=== PATIENT | male | born 1990 | race Two or more races ===

== ENCOUNTER 2019-03-05 03:30 | Emergency (ER) | payer MEDICAID ==
[~2019-03-05] VITALS: Ht 172.7 cm; Wt 72.7 kg
[~2019-03-05 03:30] MED LIST: CELEXA40 MG PO; KLONOPIN0.5 MG PO
[2019-03-05 03:34] VITALS: Ht 172.7 cm; Wt 72.7 kg
[2019-03-05 03:57] LABS: BASOPHILS 0.2 % (0-2); EOSINOPHILS 0.7 % (0-7); HEMATOCRIT 46.7 % (42.0-54.0); HEMOGLOBIN 17.4 g/dL (13.5-17.5); IMMATURE GRANULOCYTES 0.4 % (0-5); LYMPHOCYTES 21.4 % (15-50); MCH 33.2 pg (26.0-34.0); MCHC 37.3 g/dL (31.0-37.0); MCV 89.1 fL (80.0-100.0); MEAN PLATELET VOLUME 10.2 fL (7.4-10.4); MONOCYTES 13.9 % (2-11); NEUTROPHILS 63.4 % (40-80); RBC 5.24 10x6/uL (4.20-6.10); RDW 12.7 % (11.5-14.5); WBC 16.3 10x3/uL (4.8-10.8)
[2019-03-05 03:58] LABS: PLATELET COUNT 365 10x3/uL (130-400)
--- NOTE | 2019-03-05 04:06 | NUR ---
DR CALERO NOTIFIED AND REVIEWED PT's BEHAVIOR AND ASSESSMENT RESULTS. PT IS A LOW RISK PER DR CALERO. DR CALERO STATED TO GIVE RESOURCES TO PT AT TIME OF DISCHARGE. NO FURTHER ORDERS AT THIS TIME. RESOURCES REVIEWED WITH PT AND HE VERBALIZED UNDERSTANDING.
[2019-03-05 04:11] LABS: ALKALINE PHOSPHATASE 103 U/L (46-116); ALT (SGPT) 101 U/L (10-68); CALC OSMOLALITY 267 mosm/kg (275-300); CALCIUM 9.2 mg/dL (8.5-10.1); CARBON DIOXIDE 26.8 mmol/L (21.0-32.0); CHLORIDE - SERUM 95 mmol/L (98-107); CREATININE - SERUM 0.9 mg/dL (0.6-1.3); GLUCOSE 111 mg/dL (74-106); MAGNESIUM - SERUM 2.4 mg/dL (1.8-2.4); PROTEIN - SERUM 9.5 g/dL (6.4-8.2); SODIUM 132 mmol/L (136-145); UREA NITROGEN 18 mg/dL (7-18); VALPROIC ACID (DEPAKOTE) 4.7 ug/mL (50.0-100.0); eGFR NON AFRICAN AMERICAN > 90 mL/min (90-120)
[2019-03-05 04:27] LABS: APPEARANCE CLEAR (CLEAR); BILIRUBIN NEGATIVE (NEGATIVE); COLOR YELLOW (YELLOW); GLUCOSE NEGATIVE (NEGATIVE); KETONE NEGATIVE (NEGATIVE); NITRITE NEGATIVE (NEGATIVE); PROTEIN TRACE mg/dL (NEGATIVE); SPECIFIC GRAVITY 1.015 (1.005-1.020); UROBILINOGEN NORMAL (NORMAL)
[2019-03-05 04:29] LABS: BACTERIA FEW /hpf (NONE SEEN); EPITHELIAL CELLS 0-5 /hpf (0-5); HYALINE CAST 0-5 /lpf (NONE SEEN); RED CELLS - URINE NONE SEEN /hpf (0-5); WHITE CELLS - URINE 0-5 /hpf (0-5)
[2019-03-05 04:35] LABS: UDS - AMPHET NEGATIVE QUAL (NEGATIVE); UDS - BARB NEGATIVE QUAL (NEGATIVE); UDS - BENZO NEGATIVE QUAL (NEGATIVE); UDS - COCAINE NEGATIVE QUAL (NEGATIVE); UDS - OPIATE NEGATIVE QUAL (NEGATIVE); UDS - PCP NEGATIVE QUAL (NEGATIVE); UDS - THC NEGATIVE QUAL (NEGATIVE)
[2019-03-05 19:26] VITALS: BP 119/80
== END 2019-03-05 19:26 ==
LOC: D.ER 03:30
PROVIDERS: Family Medicine
DX: F29 Unspecified psychosis not due to a substance or known physiological condition (principal)

== ENCOUNTER 2019-04-25 18:34 | Emergency (ER) | payer MEDICAID ==
[~2019-04-25] VITALS: Ht 172.7 cm; Wt 70.9 kg
[2019-04-25 18:38] VITALS: Ht 172.7 cm; Wt 70.9 kg
[2019-04-25 19:22] LABS: INR 1.05 (0.85-1.17); PROTIME 13.2 SECONDS (11.6-15.0)
[2019-04-25 19:25] LABS: CALC OSMOLALITY 272 mosm/kg (275-300); CALCIUM 8.7 mg/dL (8.5-10.1); CARBON DIOXIDE 24.1 mmol/L (21.0-32.0); CHLORIDE - SERUM 101 mmol/L (98-107); CREATININE - SERUM 0.8 mg/dL (0.6-1.3); GLUCOSE 96 mg/dL (74-106); POTASSIUM - SERUM 3.6 mmol/L (3.5-5.1); SODIUM 137 mmol/L (136-145); UREA NITROGEN 10 mg/dL (7-18); eGFR NON AFRICAN AMERICAN > 90 mL/min (90-120)
[2019-04-25 19:37] LABS: BASOPHILS 0.2 % (0-2); EOSINOPHILS 1.5 % (0-7); HEMOGLOBIN 14.6 g/dL (13.5-17.5); IMMATURE GRANULOCYTES 0.1 % (0-5); MCH 31.6 pg (26.0-34.0); MCV 93.1 fL (80.0-100.0); MEAN PLATELET VOLUME 9.3 fL (7.4-10.4); MONOCYTES 9.9 % (2-11); NEUTROPHILS 50.3 % (40-80); PLATELET COUNT 340 10x3/uL (130-400); RBC 4.62 10x6/uL (4.20-6.10); RDW 12.9 % (11.5-14.5); WBC 9.2 10x3/uL (4.8-10.8)
[2019-04-25 19:41] LABS: ALBUMIN 4.1 g/dL (3.4-5.0); ALKALINE PHOSPHATASE 76 U/L (46-116); ALT (SGPT) 32 U/L (10-68); BILIRUBIN - TOTAL 1.35 mg/dL (0.2-1.3); CREATINE KINASE 704 UL (21-232); MAGNESIUM - SERUM 1.7 mg/dL (1.8-2.4); PROTEIN - SERUM 8.2 g/dL (6.4-8.2); TROPONIN-I < 0.017 ng/mL (0.000-0.060)
[2019-04-25 20:59] LABS: APPEARANCE CLEAR (CLEAR); BILIRUBIN NEGATIVE (NEGATIVE); COLOR YELLOW (YELLOW); GLUCOSE NEGATIVE (NEGATIVE); KETONE MODERATE mg/dL (NEGATIVE); NITRITE NEGATIVE (NEGATIVE); PROTEIN NEGATIVE (NEGATIVE); SPECIFIC GRAVITY 1.015 (1.005-1.020); UROBILINOGEN NORMAL (NORMAL)
[2019-04-25 21:06] LABS: UDS - AMPHET NEGATIVE QUAL (NEGATIVE); UDS - BARB NEGATIVE QUAL (NEGATIVE); UDS - BENZO NEGATIVE QUAL (NEGATIVE); UDS - COCAINE NEGATIVE QUAL (NEGATIVE); UDS - OPIATE NEGATIVE QUAL (NEGATIVE); UDS - PCP NEGATIVE QUAL (NEGATIVE); UDS - THC NEGATIVE QUAL (NEGATIVE)
[2019-04-25 22:06] VITALS: BP 143/95
== END 2019-04-25 22:06 | disposition home or self-care (01) ==
LOC: D.ER 18:34
PROVIDERS: Emergency Medicine; Family Medicine
DX: M62.82 Rhabdomyolysis (principal); F17.200 Nicotine dependence, unspecified, uncomplicated; E86.0 Dehydration

== ENCOUNTER 2020-01-20 13:31 | Emergency (ER) | payer MEDICAID ==
[~2020-01-20] VITALS: Ht 172.7 cm; Wt 70.5 kg
[2020-01-20 13:40] VITALS: BP 98/65; Ht 172.7 cm; Wt 70.5 kg
[2020-01-20 13:59] LABS: BILIRUBIN NEGATIVE (NEGATIVE); GLUCOSE NEGATIVE (NEGATIVE); KETONE SMALL mg/dL (NEGATIVE); NITRITE NEGATIVE (NEGATIVE)
[2020-01-20 14:01] LABS: RED CELLS - URINE 0-5 /hpf (0-5); WHITE CELLS - URINE 0-5 /hpf (NEGATIVE)
[2020-01-20 14:02] LABS: BACTERIA FEW /hpf (NEGATIVE)
[2020-01-20 14:05] LABS: UDS - AMPHET POSITIVE QUAL (NEGATIVE); UDS - BARB NEGATIVE QUAL (NEGATIVE); UDS - BENZO POSITIVE QUAL (NEGATIVE); UDS - COCAINE NEGATIVE QUAL (NEGATIVE); UDS - OPIATE NEGATIVE QUAL (NEGATIVE); UDS - PCP NEGATIVE QUAL (NEGATIVE); UDS - THC NEGATIVE QUAL (NEGATIVE)
[2020-01-20 14:18] LABS: BASOPHILS 0.4 % (0-2); EOSINOPHILS 2.1 % (0-7); HEMATOCRIT 42.4 % (42.0-54.0); HEMOGLOBIN 14.7 g/dL (13.5-17.5); IMMATURE GRANULOCYTES 0.4 % (0-5); LYMPHOCYTES 29.7 % (15-50); MCHC 34.7 g/dL (31.0-37.0); MCV 92.2 fL (80.0-100.0); MEAN PLATELET VOLUME 10.1 fL (7.4-10.4); MONOCYTES 13.6 % (2-11); NEUTROPHILS 53.8 % (40-80); PLATELET COUNT 395 10x3/uL (130-400); RDW 13.7 % (11.5-14.5); WBC 5.7 10x3/uL (4.8-10.8)
[2020-01-20 14:33] LABS: ALBUMIN 3.3 g/dL (3.4-5.0); ALKALINE PHOSPHATASE 77 U/L (30-120); ALT (SGPT) 24 U/L (10-68); BILIRUBIN - TOTAL 1.11 mg/dL (0.2-1.3); CALC OSMOLALITY 281 mosm/kg (275-300); CALCIUM 8.5 mg/dL (8.5-10.1); CARBON DIOXIDE 28.9 mmol/L (21.0-32.0); CHLORIDE - SERUM 106 mmol/L (98-107); CREATININE - SERUM 0.8 mg/dL (0.6-1.3); GLUCOSE 128 mg/dL (74-106); PROTEIN - SERUM 6.7 g/dL (6.4-8.2); SODIUM 142 mmol/L (136-145); UREA NITROGEN 4 mg/dL (7-18); eGFR NON AFRICAN AMERICAN > 90 mL/min (90-120)
[2020-01-20 14:39] LABS: POTASSIUM - SERUM 2.7 mmol/L (3.5-5.1)
== END 2020-01-20 17:45 ==
LOC: D.ER 13:31
PROVIDERS: Family Medicine
DX: R45.851 Suicidal ideations (principal); F31.9 Bipolar disorder, unspecified; E87.6 Hypokalemia; F15.10 Other stimulant abuse, uncomplicated; F20.9 Schizophrenia, unspecified

== ENCOUNTER 2020-11-02 15:09 | Emergency (ER) | payer MEDICAID ==
[~2020-11-02] VITALS: Ht 172.7 cm; Wt 75.0 kg
[2020-11-02 15:17] VITALS: Ht 172.7 cm; Wt 75.0 kg
[2020-11-02] MEDS ORDERED: CELEXA20 MG PO (15:20)
[2020-11-02] MEDS ORDERED: PROPRANOLOL HCL20 MG PO (15:20)
[2020-11-02] MEDS ORDERED: SEROQUEL400 MG PO (15:21)
[2020-11-02] MEDS ORDERED: ABILIFY10 MG PO (15:21)
[2020-11-02] MEDS ORDERED: CLEOCIN HCL300 MG PO (17:18)
[2020-11-02 17:30] VITALS: BP 123/83
== END 2020-11-02 17:46 | disposition home or self-care (01) ==
LOC: D.ER 15:09
DX: L02.215 Cutaneous abscess of perineum (principal); I10 Essential (primary) hypertension; Z72.0 Tobacco use

== ENCOUNTER 2020-11-14 17:45 | Emergency (ER) | payer MEDICAID ==
[~2020-11-14] VITALS: Ht 172.7 cm; Wt 79.5 kg
[~2020-11-14 17:45] MED LIST changes: +ABILIFY10 MG PO; +CELEXA20 MG PO; +CLEOCIN HCL300 MG PO; +PROPRANOLOL HCL20 MG PO; +SEROQUEL400 MG PO
[2020-11-14 17:58] VITALS: BP 134/87; Ht 172.7 cm; Wt 79.5 kg
[2020-11-14] MEDS ORDERED: HYDROCODON-ACE1 EAC7 PO (18:33)
== END 2020-11-15 08:09 | disposition home or self-care (01) ==
LOC: D.ER 17:45
DX: K61.1 Rectal abscess (principal); G89.18 Other acute postprocedural pain; A49.02 Methicillin resistant Staphylococcus aureus infection, unspecified site; I10 Essential (primary) hypertension

== ENCOUNTER 2020-11-17 10:55 | Emergency (ER) | payer MEDICAID ==
[~2020-11-17] VITALS: Ht 172.7 cm; Wt 79.5 kg
[~2020-11-17 10:55] MED LIST changes: +HYDROCODON-ACE1 EAC7 PO
[2020-11-17 10:57] VITALS: BP 120/78; Ht 172.7 cm; Wt 79.5 kg
[2020-11-17] MEDS ORDERED: BACTRIM DS TAB1 EAC1 (11:00)
--- NOTE | 2020-11-17 12:22 | NUR ---
Per assessment and observation and with discussion with ER physician Dr. Nava and with the charge nurse,patient will be placed on nursing suicide precautions with a one to one observer. Patient states he has a HX of 1 attempt of suicide and had thoughts in the last months. He states he has enough prescriptions to "do it".He has a HX of DX of Manic depressant and Schizo behaviors. He is not currently in counseling but takes his meds. He agrees he needs placement. He came to ER due to a recent ulices abcess that is causing him a lot of pain and that triggers the above thoughts. Per charge nursing they will be looking at psych placement.
[2020-11-17 12:25] LABS: BASOPHILS 0.6 % (0-2); EOSINOPHILS 1.2 % (0-7); HEMATOCRIT 40.7 % (42.0-54.0); HEMOGLOBIN 13.8 g/dL (13.5-17.5); LYMPHOCYTES 22.6 % (15-50); MCV 91.3 fL (80.0-100.0); MEAN PLATELET VOLUME 8.5 fL (7.4-10.4); MONOCYTES 6.6 % (2-11); PLATELET COUNT 363 10x3/uL (130-400); RBC 4.46 10x6/uL (4.20-6.10); RDW 13.9 % (11.5-14.5); WBC 10.1 10x3/uL (4.8-10.8)
[2020-11-17 12:32] LABS: CALC OSMOLALITY 282 mosm/kg (275-300); CALCIUM 8.1 mg/dL (8.5-10.1); CARBON DIOXIDE 25.7 mmol/L (21.0-32.0); CHLORIDE - SERUM 106 mmol/L (98-107); CREATININE - SERUM 0.8 mg/dL (0.6-1.3); GLUCOSE 101 mg/dL (74-106); POTASSIUM - SERUM 3.5 mmol/L (3.5-5.1); SODIUM 143 mmol/L (136-145); UREA NITROGEN 8 mg/dL (7-18); eGFR NON AFRICAN AMERICAN > 90 mL/min (90-120)
[2020-11-17 12:37] LABS: ALBUMIN 3.3 g/dL (3.4-5.0); ALKALINE PHOSPHATASE 72 U/L (30-120); ALT (SGPT) 34 U/L (10-68); BILIRUBIN - TOTAL 0.55 mg/dL (0.2-1.3); MAGNESIUM - SERUM 1.8 mg/dL (1.8-2.4); PROTEIN - SERUM 7.2 g/dL (6.4-8.2)
[2020-11-17 13:40] LABS: BILIRUBIN NEGATIVE (NEGATIVE); KETONE NEGATIVE (NEGATIVE); NITRITE NEGATIVE (NEGATIVE); UROBILINOGEN 8 mg/dL (< 2)
[2020-11-17 13:48] LABS: UDS - AMPHET NEGATIVE QUAL (NEGATIVE); UDS - BARB NEGATIVE QUAL (NEGATIVE); UDS - BENZO NEGATIVE QUAL (NEGATIVE); UDS - COCAINE NEGATIVE QUAL (NEGATIVE); UDS - OPIATE NEGATIVE QUAL (NEGATIVE); UDS - PCP NEGATIVE QUAL (NEGATIVE); UDS - THC POSITIVE QUAL (NEGATIVE)
== END 2020-11-17 17:18 ==
LOC: D.ER 10:55
PROVIDERS: Emergency Medicine
DX: R45.851 Suicidal ideations (principal); F32.9 Major depressive disorder, single episode, unspecified; F25.0 Schizoaffective disorder, bipolar type; I10 Essential (primary) hypertension; Z72.0 Tobacco use

== ENCOUNTER 2020-12-01 18:08 | Emergency (ER) | payer MEDICAID ==
[~2020-12-01] VITALS: Ht 172.7 cm; Wt 79.5 kg
[~2020-12-01 18:08] MED LIST changes: +BACTRIM DS TAB1 EAC1
[2020-12-01 18:15] VITALS: BP 136/98; Ht 172.7 cm; Wt 79.5 kg
[2020-12-01 18:36] LABS: BILIRUBIN NEGATIVE (NEGATIVE); KETONE TRACE mg/dL (< 1+); NITRITE NEGATIVE (NEGATIVE); UROBILINOGEN 2 mg/dL (< 2)
[2020-12-01 18:42] LABS: EOSINOPHILS 1.3 % (0-7); HEMATOCRIT 46.5 % (42.0-54.0); HEMOGLOBIN 15.8 g/dL (13.5-17.5); LYMPHOCYTES 24.2 % (15-50); MCH 30.9 pg (26.0-34.0); MCV 90.9 fL (80.0-100.0); MONOCYTES 12.3 % (2-11); NEUTROPHILS 61.2 % (40-80); RBC 5.12 10x6/uL (4.20-6.10); RDW 14.1 % (11.5-14.5); WBC 12.5 10x3/uL (4.8-10.8)
[2020-12-01 18:43] LABS: PLATELET COUNT 442 10x3/uL (130-400)
[2020-12-01 18:52] LABS: CALC OSMOLALITY 278 mosm/kg (275-300); CARBON DIOXIDE 24.1 mmol/L (21.0-32.0); CHLORIDE - SERUM 100 mmol/L (98-107); CREATININE - SERUM 0.9 mg/dL (0.6-1.3); GLUCOSE 99 mg/dL (74-106); POTASSIUM - SERUM 3.7 mmol/L (3.5-5.1); SODIUM 139 mmol/L (136-145); UREA NITROGEN 14 mg/dL (7-18); eGFR NON AFRICAN AMERICAN > 90 mL/min (90-120)
[2020-12-01 18:54] LABS: UDS - AMPHET POSITIVE QUAL (NEGATIVE); UDS - BARB NEGATIVE QUAL (NEGATIVE); UDS - BENZO NEGATIVE QUAL (NEGATIVE); UDS - COCAINE NEGATIVE QUAL (NEGATIVE); UDS - OPIATE NEGATIVE QUAL (NEGATIVE); UDS - PCP NEGATIVE QUAL (NEGATIVE); UDS - THC NEGATIVE QUAL (NEGATIVE)
[2020-12-01 18:57] LABS: ALBUMIN 4.5 g/dL (3.4-5.0); ALKALINE PHOSPHATASE 90 U/L (30-120); ALT (SGPT) 40 U/L (10-68); BILIRUBIN - TOTAL 1.55 mg/dL (0.2-1.3); MAGNESIUM - SERUM 2.3 mg/dL (1.8-2.4); PROTEIN - SERUM 9.1 g/dL (6.4-8.2)
--- NOTE | 2020-12-01 22:44 | NUR ---
DR CALERO NOTIFIED AND SITTER ORDERED. SITTER AT BEDSIDE. NOTIFIED CHARGE NURSE AND ATTENDING IN REGARDS TO ASSESSMENT FINDINGS. RESOURCES GIVEN TO PT AND SAFETY PLAN INITIATED.
--- NOTE | 2020-12-01 22:57 | NUR ---
DR CALERO NOTIFIED AND SITTER ORDERED. SITTER AT BEDSIDE. NOTIFIED CHARGE NURSE AND ATTENDING IN REGARDS TO ASSESSMENT FINDINGS. RESOURCES GIVEN TO PATIENT AND SAFETY PLAN INITIATED.
[2020-12-02 01:00] LABS: SARS-CoV-2 ANTIGEN NEGATIVE- SARS-COV-2 (NEGATIVE)
[2020-12-05 11:13] LABS: HEPATITIS C ANTIBODY 4.3 (0.0-0.9)
== END 2020-12-02 02:10 ==
LOC: D.ER 18:08
PROVIDERS: Emergency Medicine; Family Medicine
DX: F25.9 Schizoaffective disorder, unspecified (principal); D72.829 Elevated white blood cell count, unspecified; R17 Unspecified jaundice; R44.0 Auditory hallucinations; I10 Essential (primary) hypertension; Z72.0 Tobacco use

== ENCOUNTER 2020-12-22 06:37 | Emergency (ER) | payer MEDICAID ==
[~2020-12-22] VITALS: Ht 172.7 cm; Wt 90.9 kg
[2020-12-22 06:45] VITALS: Ht 172.7 cm; Wt 90.9 kg
[2020-12-22] MEDS ORDERED: KLONOPIN1 MG PO (06:51)
[2020-12-22] MEDS ORDERED: OMEPRAZOLE20 M1 PO (06:52)
[2020-12-22 07:19] LABS: BASOPHILS 1.2 % (0-2); EOSINOPHILS 0.5 % (0-7); HEMATOCRIT 45.2 % (42.0-54.0); HEMOGLOBIN 15.2 g/dL (13.5-17.5); LYMPHOCYTES 14.5 % (15-50); MCHC 33.7 g/dL (31.0-37.0); MEAN PLATELET VOLUME 8.2 fL (7.4-10.4); MONOCYTES 7.6 % (2-11); NEUTROPHILS 76.2 % (40-80); PLATELET COUNT 393 10x3/uL (130-400); RBC 4.91 10x6/uL (4.20-6.10); WBC 11.4 10x3/uL (4.8-10.8)
[2020-12-22 07:22] LABS: BILIRUBIN NEGATIVE (NEGATIVE); KETONE NEGATIVE mg/dL (< 1+); NITRITE NEGATIVE (NEGATIVE); UROBILINOGEN NORMAL mg/dL (< 2)
[2020-12-22 07:34] LABS: CALC OSMOLALITY 281 mosm/kg (275-300); CARBON DIOXIDE 23.4 mmol/L (21.0-32.0); CHLORIDE - SERUM 105 mmol/L (98-107); CREATININE - SERUM 0.7 mg/dL (0.6-1.3); GLUCOSE 130 mg/dL (74-106); POTASSIUM - SERUM 3.7 mmol/L (3.5-5.1); SODIUM 141 mmol/L (136-145); UREA NITROGEN 10 mg/dL (7-18); eGFR NON AFRICAN AMERICAN > 90 mL/min (90-120)
[2020-12-22 07:37] LABS: BACTERIA FEW HPF (<MOD); WHITE CELLS - URINE 1 HPF (0-1)
[2020-12-22 07:40] LABS: ALKALINE PHOSPHATASE 79 U/L (30-120); ALT (SGPT) 58 U/L (10-68); BILIRUBIN - TOTAL 0.41 mg/dL (0.2-1.3); MAGNESIUM - SERUM 2.1 mg/dL (1.8-2.4); PROTEIN - SERUM 8.1 g/dL (6.4-8.2)
[2020-12-22 07:47] LABS: SARS-CoV-2 ANTIGEN NEGATIVE- SARS-COV-2 (NEGATIVE)
[2020-12-22 07:51] LABS: UDS - AMPHET NEGATIVE QUAL (NEGATIVE); UDS - BARB NEGATIVE QUAL (NEGATIVE); UDS - BENZO NEGATIVE QUAL (NEGATIVE); UDS - COCAINE NEGATIVE QUAL (NEGATIVE); UDS - OPIATE NEGATIVE QUAL (NEGATIVE); UDS - PCP NEGATIVE QUAL (NEGATIVE); UDS - THC NEGATIVE QUAL (NEGATIVE)
--- NOTE | 2020-12-22 08:33 | NUR ---
Per interview and assessment, Patient scored a high risk level for suicide risk. He states he has a one time HX of attempt ?12 years ago and then in last month feelings of suicide with a Seroquel "overdose". He stated he has a HX of inpatient counseling and medication regime but states he has been noncompliant. Spoke with ER charge nurse and ER attending Physician and a referral to be sent out of inpatient needs. Order rec'd for suicide watch with one to one observations. Patient in clear view at this date/time and is now lying in bed with eyes closed.
[2020-12-22 11:04] VITALS: BP 122/74
== END 2020-12-22 10:55 ==
LOC: D.ER 06:37
PROVIDERS: Emergency Medicine
DX: R44.0 Auditory hallucinations (principal); R45.851 Suicidal ideations; F25.9 Schizoaffective disorder, unspecified; I10 Essential (primary) hypertension; Z72.0 Tobacco use